=== PATIENT | female | born 1980 | race Hispanic/Latino ===

== ENCOUNTER 2018-03-08 21:24 | Emergency (ER) | payer SELFPAY ==
[~2018-03-08] VITALS: Ht 149.9 cm; Wt 64.0 kg
[~2018-03-08 21:24] MED LIST: CEPHALEXIN500 M1 OR; CLARITIN10 MG OR; NO HOME MEDS
[2018-03-08 21:33] VITALS: BP 122/79
--- NOTE | 2018-03-08 23:17 | NUR ---
BREATHING TREATMENT GIVEN USING A MOUTH PEICE. BREATHING TECH. FOR GOOD DEPOSITION TO THE LUNGS.[id number]
[2018-03-08 23:23] LABS: MEAN CORPUSCULAR HGB CONC 33.5 g/L CALC (32.0-36.0); NEUT# 4.77 thou/uL (2.00-7.15); RED BLOOD COUNT 4.38 mill/uL (4.20-5.60); RED CELL DISTRI WIDTH 12.9 % (11.5-15.5)
[2018-03-08 23:24] LABS: HEMATOCRIT 41.8 % (37.0-47.0); MEAN CELL VOLUME 95.4 fL CALC (80.0-100.0)
== END 2018-03-09 00:10 | disposition home or self-care (01) | DRG 153 ==
LOC: ED 21:24
PROVIDERS: Family Medicine
DX: J11.1 Influenza due to unidentified influenza virus with other respiratory manifestations (principal); R07.89 Other chest pain; H92.09 Otalgia, unspecified ear